=== PATIENT | male | born 2000 | race Caucasian/White ===

== ENCOUNTER 2021-09-02 07:18 | Emergency (ER) | payer OTHER, SELFPAY ==
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
[2021-09-02 07:26] VITALS: BP 136/81; BP 137/90; PULSE 104; PULSE 87; RESP 18; TEMP 36.4; O2SAT 100; O2SAT 99; BMI 20.3
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
[2021-09-02] MEDS: Ibuprofen 600 MG TABLET PO (07:49)
[2021-09-02] MEDS: Fluorescein Sodium STRIP 1 STRIP EYE-LEFT (09:57)
[2021-09-02] MEDS: Tetracaine HCl/PF 0.5% Oph Sol 4 ML DROPS 1 DROP EYE-BOTH (09:57)
[2021-09-02 10:05] LABS: Appearance Urine CLEAR; Color Urine YELLOW; Glucose Urine UA NEG (NEG); Leukocyte Esterase Urine NEG (NEG); Nitrite Urine NEG (NEG); Specific Gravity - Urine 1.025 (1.005-1.025); Urine Blood NEG (NEG); Urine Ketones NEG (NEG); Urine Protein TRACE MG/DL (NEG-TRACE)
== END 2021-09-02 10:37 | disposition home or self-care (01) ==
PROVIDERS: Emergency Provider Emergency Medicine
DX: S39.012A Strain of muscle, fascia and tendon of lower back, initial encounter (principal); G44.309 Post-traumatic headache, unspecified, not intractable; H57.12 Ocular pain, left eye; V43.52XA Car driver injured in collision with other type car in traffic accident, initial encounter; Y93.9 Activity, unspecified; Y92.410 Unspecified street and highway as the place of occurrence of the external cause; Y99.9 Unspecified external cause status
CPT/HCPCS: 70450; 72100; 72125; 81003; 99284